=== PATIENT | male | born 1975 | race Caucasian/White ===

== ENCOUNTER 2017-02-03 12:35 | Inpatient (IN) | payer OTHER ==
[~2017-02-03] VITALS: Ht 170.2 cm; Wt 93.8 kg
[2017-02-03 14:39] LABS: HEMATOCRIT 44.6 % (38.0-50.0); MCH 30.3 PG (29.0-34.0); MCHC 34.1 G/DL (30.0-36.0); MEAN PLAT.VOLUME 9.5 uM^3 (9.0-12.4); PLATELET COUNT 244 K/uL (156-360); RBC DIS.WIDTH-CV 15.9 % (11.8-14.6); RBC DIS.WIDTH-SD 51.8 % (39-53); RED BLOOD COUNT 5.01 M/uL (4.00-5.50); WHITE BLOOD COUNT 11.2 K/uL (4.1-10.2)
[2017-02-03 14:49] LABS: INTER. NORMALIZED RATIO 1.1; PROTHROMBIN TIME 11.5 (9.2-11.2); PTT 33.1 (25-32)
[2017-02-03 14:55] LABS: CREATINE KINASE 102 IU/L (1-294); LIPASE 30 U/L (1.0-51.0)
[2017-02-03 15:40] LABS: ADD MIUA? YES; BILIRUBIN NEGATIVE; BLOOD NEGATIVE; COLOR AMBER ((YELLOW)); GLUCOSE (STRIP) 50; KETONES NEGATIVE; LEUKOCYTES NEGATIVE; NITRITE NEGATIVE; PROTEIN (STRIP) NEGATIVE; SPECIFIC GRAVITY 1.011 (1.000-1.030); UROBILINOGEN 0.2 MG/DL (0.2-1.0)
[2017-02-03] MEDS ORDERED: MEN'S ONE DAIL1 EACH PO (16:22)
[2017-02-03] MEDS ORDERED: FISH OIL 1,0001 EAC7 PO (16:22)
[2017-02-03] MEDS ORDERED: ASCORBIC ACID500 M3 PO (16:22)
[2017-02-03 16:36] LABS: DIRECT BILIRUBIN 2.1 mg/dL (0.0-0.3)
[2017-02-03 17:07] LABS: ADD MEDTOX COMMENT Y; AMPHETAMINE NEGATIVE (500 ng/mL); BARBITURATES NEGATIVE (200 ng/mL); BENZODIAZEPINES NEGATIVE (150 ng/mL); COCAINE NEGATIVE (150 ng/mL); INTERNAL CONTROLS VALID? YES; METHADONE NEGATIVE (200 ng/mL); METHAMPHETAMINE NEGATIVE (500 ng/mL); OPIATES (MORPHINE) NEGATIVE (100 ng/mL); OXYCODONE NEGATIVE (100 ng/mL); PHENCYCLIDINE NEGATIVE (25 ng/mL); PROPOXYPHENE NEGATIVE (300 ng/mL); THC CANNABINOIDS PRESUMPTIVE POSITIVE (50 ng/mL); TRICYCLIC ANTIDEPRESSANTS NEGATIVE (300 ng/mL)
[2017-02-03 17:20] LABS: TOTAL BILIRUBIN 3.2 mg/dL (0.0-1.0)
[2017-02-03 17:21] LABS: ALKALINE PHOSPHATASE 185 IU/L (3-129)
[2017-02-03 17:24] LABS: SALICYLATE < 5.0 MG/DL (15-30)
[2017-02-03 19:45] LABS: CHLORIDE 104 mEq/L (99-109); SODIUM 137 mEq/L (136-147)
[2017-02-03 19:47] LABS: GLUCOSE 85 mg/dL (70-99)
[2017-02-03 19:48] LABS: ANION GAP 9 MEQ/L (2-14)
[2017-02-03 19:51] LABS: GFR ESTIMATE (CALCULATED) > 59 mL/min/; UREA NITROGEN (BUN) 15 mg/dL (9-23)
[2017-02-03 19:53] LABS: CREATINE KINASE 83 IU/L (1-294)
[2017-02-03 20:47] LABS: SAMPLE HEMOLYSIS CHECK 0; SAMPLE ICTERIC CHECK 1; SAMPLE LIPEMIA CHECK 0
[2017-02-03 20:53] LABS: LACTATE DEHYDROGENASE 378 IU/L (20-246)
[2017-02-03 22:30] VITALS: BP 112/59
[2017-02-04 06:42] LABS: HEMATOCRIT 40.8 % (38.0-50.0); MCH 31.1 PG (29.0-34.0); MCHC 34.1 G/DL (30.0-36.0); MCV 91.3 FL (86-99); MEAN PLAT.VOLUME 10.7 uM^3 (9.0-12.4); PLATELET COUNT 213 K/uL (156-360); RBC DIS.WIDTH-CV 16.4 % (11.8-14.6); RBC DIS.WIDTH-SD 54.7 % (39-53); RED BLOOD COUNT 4.47 M/uL (4.00-5.50); WHITE BLOOD COUNT 8.9 K/uL (4.1-10.2)
[2017-02-04 07:19] LABS: ALKALINE PHOSPHATASE 158 IU/L (3-129); ANION GAP 6 MEQ/L (2-14); CHLORIDE 110 MEQ/L (99-109); GFR ESTIMATE (CALCULATED) > 59 mL/min/; SAMPLE HEMOLYSIS CHECK 0; SAMPLE ICTERIC CHECK 0; SAMPLE LIPEMIA CHECK 0; SODIUM 142 MEQ/L (136-147); UREA NITROGEN (BUN) 13 mg/dL (9-23)
[2017-02-04 07:24] LABS: GLUCOSE 117 mg/dL (70-99); POTASSIUM 4.9 MEQ/L (3.7-5.4); TOTAL BILIRUBIN 2.5 MG/DL (0.0-1.0)
[2017-02-04 07:47] VITALS: BP 120/60
[2017-02-04 08:29] LABS: BACTERIA RARE /HPF; CALCIUM OXALATE CRYSTALS 1+ /HPF; EPITHELIAL CELLS RARE /HPF; GRANULAR CASTS 0-5 /LPF; MUCUS TRACE /LPF; RED BLOOD CELLS 0-5 /HPF (0-5); UCUL ADDED? NO; WHITE BLOOD CELLS 0-5 /HPF (0-5); WHITE BLOOD CELLS CLUMP RARE /HPF (0-5)
[2017-02-04 11:30] LABS: ANTI-HEPATITIS A VIRUS (IGM) Nonreactive; HAV INDEX 0.28; HPCA INDEX 0.23
[2017-02-04 12:15] LABS: ANTI-HEPATITIS B CORE (IGM) REACTIVE; HBC IgM INDEX 49.36; HBSG INDEX 3564.89
[2017-02-04 15:51] LABS: HIV INDEX 0.61; HIV-1/2 AB/AG COMBO Nonreactive
[2017-02-04 16:08] VITALS: BP 151/88
[2017-02-05 00:48] VITALS: BP 129/56
[2017-02-05 06:45] LABS: BASOPHIL COUNT 0.1 K/uL (0-0.1); EOSINOPHIL (%) 2.8 % (0-5); EOSINOPHIL COUNT 0.3 K/uL (0-0.3); HEMATOCRIT 42.3 % (38.0-50.0); IMMATURE GRANULOCYTE (%) 0.7 % (0.0-0.7); IMMATURE GRANULOCYTE COUNT 0.1 K/uL; INSTRUMENT ABS NEUTROPHIL CT 5.4 K/uL; MCH 30.4 PG (29.0-34.0); MCHC 33.6 G/DL (30.0-36.0); MCV 90.6 FL (86-99); MEAN PLAT.VOLUME 10.6 uM^3 (9.0-12.4); MONOCYTE (%) 18.2 % (3-12); MONOCYTE COUNT 1.7 K/uL (0-0.8); NEUTROPHIL (%) 56.4 % (45-76); NEUTROPHIL COUNT 5.4 K/uL (1.8-6.4); PLATELET COUNT 203 K/uL (156-360); RBC DIS.WIDTH-CV 16.4 % (11.8-14.6); RBC DIS.WIDTH-SD 54.6 % (39-53); RED BLOOD COUNT 4.67 M/uL (4.00-5.50); WHITE BLOOD COUNT 9.5 K/uL (4.1-10.2)
[2017-02-05 07:40] LABS: ALKALINE PHOSPHATASE 157 IU/L (3-129); ANION GAP 8 MEQ/L (2-14); CHLORIDE 108 MEQ/L (99-109); DIRECT BILIRUBIN 1.2 mg/dL (0.0-0.3); GFR ESTIMATE (CALCULATED) > 59 mL/min/; GLUCOSE 102 mg/dL (70-99); POTASSIUM 4.5 MEQ/L (3.7-5.4); SAMPLE HEMOLYSIS CHECK 0; SAMPLE ICTERIC CHECK 0; SAMPLE LIPEMIA CHECK 0; SODIUM 143 MEQ/L (136-147); TOTAL BILIRUBIN 2.5 MG/DL (0.0-1.0); UREA NITROGEN (BUN) 13 mg/dL (9-23)
[2017-02-05 08:15] VITALS: BP 113/57
[2017-02-05] MEDS ORDERED: VIREAD300 MG PO (09:55)
[2017-02-09 08:26] LABS: HBV DNA Copies/mL 5.04 (<1.30)
== END 2017-02-05 12:19 | disposition home or self-care (01) | DRG 443 ==
LOC: EME 12:35 → EDOF 18:30 → 5EAST 18:30
PROVIDERS: Hospitalist; Internal Medicine; Nurse Practitioner Family
DX: B16.9 Acute hepatitis B without delta-agent and without hepatic coma (principal); E87.5 Hyperkalemia; K76.0 Fatty (change of) liver, not elsewhere classified; F12.90 Cannabis use, unspecified, uncomplicated; G40.909 Epilepsy, unspecified, not intractable, without status epilepticus; L50.9 Urticaria, unspecified; Z82.5 Family history of asthma and other chronic lower respiratory diseases
CPT/HCPCS: 36415; 74177; 76705; 80048; 80053; 80061; 80074; 80076; 81003; 82140; 82248; 82550; 82550 91; 83036; 83615; 83690; 84999; 85025; 85027; 85610; 85651; 85730; 86038; 86703; 87040; 87517 90; 99281; 99285; G0480; J7030